=== PATIENT | male | born 2005 | race Two or more races ===

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

== ENCOUNTER 2023-09-29 18:00 | Emergency (ER) | payer OTHER ==
[2023-09-29] MEDS: Diphtheria,Pertussis(Acell),Tetanus Vaccine 0.5 ML Syringe IM ONE (18:27)
[2023-09-29 18:33] VITALS: BP 118/79; PULSE 88
== END 2023-09-29 18:36 | disposition home or self-care (01) ==
LOC: JD.ED 18:00
DX: S61.452A Open bite of left hand, initial encounter (principal); Z91.013 Allergy to seafood; Z79.899 Other long term (current) drug therapy; Z23 Encounter for immunization; W55.01XA Bitten by cat, initial encounter
CPT/HCPCS: 90471; 90715; 99283-25